=== PATIENT | male | born 1945 | race Caucasian/White ===

== ENCOUNTER 2022-09-02 05:06 | Day surgery (SDC) | payer OTHER, BC ==
[2022-08-27 14:58] VITALS: BMI 29.6
[~2022-09-02 05:06] MED LIST: LIDOCAINE HCL 1% PRESERVATIVE FREE - 30ML VIAL IJ ONE
[2022-09-02] MEDS ORDERED: LIDOCAINE HCL/PF 1% SDV 5ML VIAL ONE (07:38)
[2022-09-02] MEDS ORDERED: DEXAMETHASONE SOD PHOSPHATE 10 MG/1 ML VIAL ONE (07:38)
[2022-09-02] MEDS ORDERED: DEXAMETHASONE SOD PHOSPHATE 4 MG/1 ML VIAL ONE (07:38)
[2022-09-02] MEDS ORDERED: ACETAMINOPHEN 500 MG TABLET (FP) PO PRN (07:47)
[2022-09-02 13:35] VITALS: BP 141/58; PULSE 96; RESP 18; TEMP 97.6
[2022-09-02] MEDS ORDERED: IOHEXOL 180 MG/1 ML ML IJ ONE (14:56)
[2022-09-02] MEDS ORDERED: LIDOCAINE HCL 1% PRESERVATIVE FREE - 30ML VIAL IJ ONE (14:56)
[2022-09-02] MEDS ORDERED: DEXAMETHASONE SOD PHOSPHATE 10 MG/1 ML VIAL IVPUSH ONE (14:57)
== END 2022-09-02 13:30 | disposition home or self-care (01) ==
LOC: JASU-SURG 05:06
PROVIDERS: ATTEND Pain Medicine Pain Medicine
PROC: 3E0R3BZ Introduction of Anesthetic Agent into Spinal Canal, Percutaneous Approach (ICD-10-PCS; 2022-09-02)
PROC: 3E0R33Z Introduction of Anti-inflammatory into Spinal Canal, Percutaneous Approach (ICD-10-PCS; principal; 2022-09-02 15:30)
DX: M54.16 Radiculopathy, lumbar region (principal); M48.061 Spinal stenosis, lumbar region without neurogenic claudication
CPT/HCPCS: 76000-TC-FY; J1100

== ENCOUNTER 2022-10-03 04:08 | Day surgery (SDC) | payer OTHER, BC ==
[2022-10-02 09:31] VITALS: BMI 29.6
[~2022-10-03 04:08] MED LIST changes: +DEXAMETHASONE SOD PHOSPHATE 10 MG/1 ML VIAL IM ONE; +IOHEXOL 180 MG/1 ML ML IJ ONE
[2022-10-03 08:48] VITALS: RESP 20
[2022-10-03] MEDS ORDERED: ACETAMINOPHEN 500 MG TABLET (FP) PO PRN (10:17)
[2022-10-03] MEDS ORDERED: IOHEXOL 180 MG/1 ML ML IJ ONE (11:26)
[2022-10-03] MEDS ORDERED: DEXAMETHASONE SOD PHOSPHATE 10 MG/1 ML VIAL IM ONE (11:26)
[2022-10-03] MEDS ORDERED: LIDOCAINE HCL 1% PRESERVATIVE FREE - 30ML VIAL IJ ONE (11:26)
[2022-10-03 12:55] VITALS: PULSE 71; TEMP 97.8
[2022-10-03 13:01] VITALS: BP 122/62
== END 2022-10-03 12:30 | disposition home or self-care (01) ==
LOC: JASU-SURG 04:08
PROVIDERS: ATTEND Pain Medicine Pain Medicine
PROC: 3E0R3BZ Introduction of Anesthetic Agent into Spinal Canal, Percutaneous Approach (ICD-10-PCS; 2022-10-03)
PROC: 3E0R33Z Introduction of Anti-inflammatory into Spinal Canal, Percutaneous Approach (ICD-10-PCS; principal; 2022-10-03 10:45)
DX: M54.16 Radiculopathy, lumbar region (principal); M48.061 Spinal stenosis, lumbar region without neurogenic claudication
CPT/HCPCS: 76000-TC-FY; J1100

== ENCOUNTER 2022-11-04 04:28 | Day surgery (SDC) | payer OTHER, BC ==
[2022-10-30 11:08] VITALS: BMI 29.9
[~2022-11-04 04:28] MED LIST changes: -DEXAMETHASONE SOD PHOSPHATE 10 MG/1 ML VIAL IM ONE; -IOHEXOL 180 MG/1 ML ML IJ ONE
[2022-11-04] MEDS ORDERED: LIDOCAINE HCL 1%, 10 MG/ML (20ML VIAL) ONE (07:22)
[2022-11-04] MEDS ORDERED: LIDOCAINE HCL 2% (20ML MULTI-DOSE VIAL) ONE (07:22)
[2022-11-04] MEDS ORDERED: LIDOCAINE HCL/PF 1% SDV 5ML VIAL ONE (07:26)
[2022-11-04] MEDS ORDERED: LIDOCAINE HCL 1% PRESERVATIVE FREE - 30ML VIAL IJ ONE (08:56)
[2022-11-04 09:59] VITALS: RESP 18
[2022-11-04] MEDS ORDERED: ACETAMINOPHEN 500 MG TABLET (FP) PO PRN (10:07)
[2022-11-04 10:33] VITALS: BP 167/68; PULSE 84; TEMP 97.7
== END 2022-11-04 10:20 | disposition home or self-care (01) ==
LOC: JASU-SURG 04:28
PROVIDERS: ATTEND Pain Medicine Pain Medicine
PROC: 01HY3MZ Insertion of Neurostimulator Lead into Peripheral Nerve, Percutaneous Approach (ICD-10-PCS; principal; 2022-11-04 08:00)
DX: G89.4 Chronic pain syndrome (principal)
CPT/HCPCS: 64555; C1778

== ENCOUNTER 2022-12-19 04:26 | Day surgery (SDC) | payer OTHER, BC ==
[2022-12-17 16:55] VITALS: BMI 30.4
[2022-12-19] MEDS ORDERED: LIDOCAINE HCL/PF 2% SDV 5ML VIAL ONE (07:25)
[2022-12-19] MEDS ORDERED: LIDOCAINE HCL/PF 1% SDV 5ML VIAL ONE (07:26)
[2022-12-19] MEDS ORDERED: FENTANYL CITRATE/PF 50 MCG/ML VIAL ONE ×2 (12:53→13:16)
[2022-12-19] MEDS ORDERED: MIDAZOLAM HCL 2 MG/2 ML SINGLE DOSE VIAL ONE ×2 (12:53→12:54)
[2022-12-19] MEDS ORDERED: ceFAZolin SODIUM 1 GM VIAL ONE ×2 (13:10→13:15)
[2022-12-19] MEDS ORDERED: DEXAMETHASONE SOD PHOSPHATE 10 MG/1 ML VIAL ONE (13:14)
[2022-12-19] MEDS ORDERED: ceFAZolin SODIUM 1 GM VIAL IVPB ONE (13:15)
[2022-12-19] MEDS ORDERED: ONDANSETRON 4 MG/2 ML VIAL ONE (13:16)
[2022-12-19] MEDS ORDERED: LIDOCAINE HCL/PF 2% SDV 5ML VIAL INF ONE (13:25)
[2022-12-19] MEDS ORDERED: LIDOCAINE 1% P/F 10 MG/ML VIAL INF ONE (13:25)
[2022-12-19] MEDS ORDERED: DEXAMETHASONE SOD PHOSPHATE 10 MG/1 ML VIAL IVPUSH ONE (13:25)
[2022-12-19] MEDS ORDERED: IOHEXOL 180 MG/1 ML ML IJ ONE (13:42)
[2022-12-19 14:52] VITALS: RESP 18; TEMP 98.6
[2022-12-19 17:06] VITALS: BP 152/62; PULSE 73
== END 2022-12-19 15:20 | disposition home or self-care (01) ==
LOC: JASU-SURG 04:26
PROVIDERS: ATTEND Pain Medicine Pain Medicine
PROC: 01NB3ZZ Release Lumbar Nerve, Percutaneous Approach (ICD-10-PCS; principal; 2022-12-19 12:30)
DX: M48.062 Spinal stenosis, lumbar region with neurogenic claudication (principal)
CPT/HCPCS: 0275T; C1889; 36415; 76000-TC-FY; 82010; 82947; 88304-TC; J1100

== ENCOUNTER 2022-12-29 00:54 | Emergency (ER) | payer OTHER, BC ==
[2022-12-29 01:46] VITALS: BMI 31.1
[2022-12-29] MEDS ORDERED: ACETAMINOPHEN 1000 MG/100 ML BAG IVPB ONE (03:22)
[2022-12-29] MEDS ORDERED: MECLIZINE HCL 12.5 MG TABLET PO ONE (03:23)
[2022-12-29] MEDS ORDERED: MECLIZINE HCL 12.5 MG TABLET ONE (03:29)
[2022-12-29] MEDS ORDERED: ACETAMINOPHEN INJECTION 100 ML IVPB ONE (03:29)
[2022-12-29] MEDS ORDERED: NICARDIPINE 25 MG in DEXTROSE 5%-WATER - 240 ML IVPB SCH (03:30)
[2022-12-29 03:38] LABS: BASO % 0.9 % (0-2.0); EOS % 2.8 % (0-4.5); HEMATOCRIT 49.3 % (35.4-49); HEMOGLOBIN 16.8 GM/dL (11.7-16.9); LYMPH % 12.5 % (8-40); MCH 30.1 pg (25.7-33.7); MCHC 34.1 g/dl (32.0-35.9); MEAN CELL VOLUME 88.5 fl (80-96); MEAN PLT VOLUME 8.6 fl (7.5-11.1); MONO % 8.8 % (3.8-10.2); PLATELET COUNT 223 10^3/uL (134-434); RBC 5.57 M/mm3 (4.00-5.60); RDW 14.1 % (11.9-15.9); WHITE BLOOD COUNT 15.7 K/mm3 (4.0-10.0)
[2022-12-29 03:44] LABS: INR 1.1 (0.83-1.09); PROTHROMBIN TIME (PATIENT) 12.7 SEC (9.7-13.0)
[2022-12-29 03:47] LABS: ACTIVATED PTT 35.7 SECONDS (25.2-36.5)
[2022-12-29 04:23] LABS: CHLORIDE 105 mmol/L (98-107); POTASSIUM 4.3 mmol/L (3.5-5.1); SODIUM 137 mmol/L (136-145)
[2022-12-29 04:26] LABS: ALBUMIN 4.1 g/dl (3.4-5.0); ANION GAP 7 mmol/L (4-13); CO2 25 mmol/L (21-32); GLUCOSE,RANDOM 128 mg/dL (74-106)
[2022-12-29 04:28] LABS: BLOOD UREA NITROGEN 11.8 mg/dL (7-18)
[2022-12-29 04:29] LABS: CREATININE 0.7 mg/dL (0.55-1.3); SGOT/AST 20 U/L (15-37); SGPT/ALT 27 U/L (13-61)
[2022-12-29 04:30] LABS: CHOLESTEROL 187 mg/dL (50-200); TOT PROT 7.5 g/dl (6.4-8.2)
[2022-12-29 04:32] LABS: BILIRUBIN,TOTAL 1.4 mg/dL (0.2-1); HDL CHOLESTEROL 67 mg/dL (40-60); LDL CHOLESTEROL (ONLY SJRH) 100 mg/dL (5-100)
[2022-12-29 04:33] LABS: ALK PHOS 110 U/L (45-117)
[2022-12-29 05:21] VITALS: BP 160/85; PULSE 72; RESP 20; TEMP 97.5
== END 2022-12-29 05:29 | disposition short-term general hospital (02) ==
LOC: JER 00:54
PROC: 3E033NZ Introduction of Analgesics, Hypnotics, Sedatives into Peripheral Vein, Percutaneous Approach (ICD-10-PCS; principal; 2022-12-29)
DX: S06.360A Traumatic hemorrhage of cerebrum, unspecified, without loss of consciousness, initial encounter (principal); W01.198A Fall on same level from slipping, tripping and stumbling with subsequent striking against other object, initial encounter; Y92.002 Bathroom of unspecified non-institutional (private) residence as the place of occurrence of the external cause
CPT/HCPCS: 36415; 70450-TC; 71045-TC-FY; 72125-TC; 80053; 80061; 82550; 83036; 84484; 85025; 85610; 85730; 86850; 86900; 86901; 93005; 93010; 99285-25

== ENCOUNTER 2023-10-22 04:44 | Day surgery (SDC) | payer OTHER, BC ==
[2023-10-19 13:24] VITALS: BMI 25.8
[2023-10-22] MEDS ORDERED: LIDOCAINE HCL/PF 1% SDV 5ML VIAL ONE (07:45)
[2023-10-22] MEDS ORDERED: DEXAMETHASONE SOD PHOSPHATE 10 MG/1 ML VIAL ONE (07:45)
[2023-10-22] MEDS: DEXAMETHASONE SOD PHOSPHATE 10 MG/1 ML VIAL IVPUSH ONE ×2 (11:06)
[2023-10-22] MEDS: LIDOCAINE HCL 1% PRESERVATIVE FREE - 30ML VIAL IJ ONE (11:06)
[2023-10-22 11:30] VITALS: BP 142/76; PULSE 80; RESP 20; TEMP 97.3
[2023-10-22] MEDS ORDERED: ACETAMINOPHEN 500 MG TABLET (FP) PO PRN (13:13)
== END 2023-10-22 11:32 | disposition home or self-care (01) ==
LOC: JASU-SURG 04:44
PROVIDERS: ATTEND Pain Medicine Pain Medicine
PROC: 3E0R3BZ Introduction of Anesthetic Agent into Spinal Canal, Percutaneous Approach (ICD-10-PCS; 2023-10-22)
PROC: 3E0R33Z Introduction of Anti-inflammatory into Spinal Canal, Percutaneous Approach (ICD-10-PCS; principal; 2023-10-22 11:00)
DX: M54.16 Radiculopathy, lumbar region (principal); M48.061 Spinal stenosis, lumbar region without neurogenic claudication
CPT/HCPCS: 76000-TC-FY; J1100

== ENCOUNTER 2023-12-31 03:53 | Inpatient (IN) | payer OTHER, BC ==
[2023-12-31] MEDS ORDERED: VANCOMYCIN 1,000 MG VIAL (RESTRICTED TO ID ONLY) ONE (07:02)
[2023-12-31] MEDS ORDERED: GENTAMICIN SO4 80 MG/2 ML VIAL ONE (07:02)
[2023-12-31] MEDS ORDERED: BUPIVACAINE LIPOSOME/PF (EXPAREL) 266 MG/20 ML VIAL ONE ×2 (07:03→09:59)
[2023-12-31] MEDS ORDERED: BUPIVACAINE HCL/PF 0.5% (5MG/ML) 10 ML VIAL ONE (07:03)
[2023-12-31] MEDS ORDERED: PROPOFOL 60 ML ONE (07:28)
[2023-12-31] MEDS ORDERED: MIDAZOLAM HCL 2 MG/2 ML SINGLE DOSE VIAL ONE (07:29)
[2023-12-31] MEDS ORDERED: SUCCINYLCHOLINE CHLORIDE 200 MG/10 ML SYRINGE ONE (07:30)
[2023-12-31] MEDS ORDERED: oxyCODONE HCL 5 MG TABLET PO PRN ×2 (08:00→11:13)
[2023-12-31] MEDS ORDERED: ONDANSETRON 4 MG/2 ML VIAL IVPUSH PRN ×3 (08:00→11:13)
[2023-12-31] MEDS ORDERED: ACETAMINOPHEN 325 MG TABLET (FP) PO PRN ×2 (08:00→11:13)
[2023-12-31] MEDS: HYDROGEN PEROXIDE 473 ML PO ONE ×2 (08:44→10:00)
[2023-12-31] MEDS: ceFAZolin SODIUM 1 GM VIAL IVPB ONE ×2 (08:44→08:52)
[2023-12-31] MEDS ORDERED: ROCURONIUM BROMIDE 50 MG/5 ML SYRINGE ONE ×2 (08:46→09:33)
[2023-12-31] MEDS ORDERED: TRANEXAMIC ACID 1000 MG/10 ML VIAL ONE (08:58)
[2023-12-31] MEDS ORDERED: HYDROmorphone HCl 2 MG/ML VIAL ONE (09:16)
[2023-12-31] MEDS ORDERED: PROPOFOL 20 ML ONE (09:22)
[2023-12-31] MEDS ORDERED: SUGAMMADEX SODIUM 200 MG/2 ML VIAL ONE (09:49)
[2023-12-31] MEDS ORDERED: ACETAMINOPHEN INJECTION 100 ML ONE (09:53)
[2023-12-31] MEDS ORDERED: BUPIVACAINE HCL/PF 0.25% (2.5MG/ML) 10 ML VIAL ONE (09:59)
[2023-12-31] MEDS: GENTAMICIN SO4 80 MG/2 ML VIAL IVPB ONE (10:07)
[2023-12-31] MEDS ORDERED: KETOROLAC TROMETHAMINE 30 MG/1 ML VIAL ONE (10:09)
[2023-12-31] MEDS: THROMBIN (BOVINE) 5,000 UNIT VIAL TP ONE (10:15)
[2023-12-31] MEDS: BUPIVACAINE LIPOSOME/PF (EXPAREL) 266 MG/20 ML VIAL NR ONE ×2 (10:16→10:20)
[2023-12-31] MEDS: VANCOMYCIN 1 GM in D5W (PRE-DOCKED) 1,000 MG/250 ML (RESTRICTED TO ID ONLY IVPB ONE (10:16)
[2023-12-31] MEDS: BUPIVACAINE HCL/PF 0.25% (2.5MG/ML) 10 ML VIAL IJ ONE ×2 (10:16→10:20)
[2023-12-31] MEDS ORDERED: diazePAM CARPU-JECT 10 MG/2 ML DISP.SYRIN ONE (12:46)
[2023-12-31] MEDS: diazePAM CARPU-JECT 10 MG/2 ML DISP.SYRIN IVPUSH PRN (12:49)
[2023-12-31] MEDS: LACTATED RINGERS SOLUTION 1,000 ML IV SCH ×3 (13:01→17:51)
[2023-12-31] MEDS ORDERED: DEXAMETHASONE SOD PHOSPHATE 10 MG/1 ML VIAL ONE (14:01)
[2023-12-31] MEDS: DEXAMETHASONE SOD PHOSPHATE 10 MG/1 ML VIAL IVPUSH ONE (14:28)
[2023-12-31] MEDS: ACETAMINOPHEN 1000 MG/100 ML BAG IVPB PRN (15:51)
[2023-12-31] MEDS: CEFAZOLIN 1 GM/D5W 1 GM/50 ML BAG IVPB SCH (15:51)
[2023-12-31] MEDS: oxyCODONE HCL 5 MG TABLET PO PRN (16:28)
[2023-12-31] MEDS: GABAPENTIN 300 MG CAPSULE PO SCH (21:23)
[2023-12-31] MEDS: DEXAMETHASONE SOD PHOSPHATE 10 MG/1 ML VIAL IVPUSH SCH (21:24)
[2024-01-01] MEDS: EMPAGLIFLOZIN (JARDIANCE) 10 MG TABLET PO SCH (06:14)
[2024-01-01] MEDS: GLIMEPIRIDE 1 MG TABLET PO SCH (06:14)
[2024-01-01 08:47] LABS: POTASSIUM 4.1 mmol/L (3.5-5.1)
[2024-01-01 08:54] LABS: BLOOD UREA NITROGEN 19.7 mg/dL (7-18); CALCIUM 8.7 mg/dL (8.5-10.1)
[2024-01-01 08:55] LABS: CREATININE 0.7 mg/dL (0.55-1.3)
[2024-01-01 10:56] LABS: HEMATOCRIT 37.4 % (35.4-49); HEMOGLOBIN 12.6 GM/dL (11.7-16.9); MCH 30.6 pg (25.7-33.7); MCHC 33.7 g/dl (32.0-35.9); MEAN CELL VOLUME 90.8 fl (80-96); MEAN PLT VOLUME 8.4 fl (7.5-11.1); PLATELET COUNT 185 10^3/uL (134-434); RBC 4.12 M/mm3 (4.00-5.60); RDW 12.7 % (11.9-15.9); WHITE BLOOD COUNT 20.4 K/mm3 (4.0-10.0)
[2024-01-01] MEDS: ROSUVASTATIN CA 5 MG TABLET PO SCH (11:08)
[2024-01-01] MEDS: LOSARTAN POTASSIUM 50 MG TABLET PO SCH (11:08)
[2024-01-01] MEDS ORDERED: diazePAM 5 MG TABLET PO PRN (15:51)
[2024-01-01] MEDS: oxyCODONE HCL 5 MG TABLET PO PRN (17:17)
[2024-01-02 07:53] LABS: HEMOGLOBIN 12.4 GM/dL (11.7-16.9); MCH 30.6 pg (25.7-33.7); MCHC 34.4 g/dl (32.0-35.9); MEAN CELL VOLUME 89.1 fl (80-96); MEAN PLT VOLUME 8.1 fl (7.5-11.1); PLATELET COUNT 185 10^3/uL (134-434); RBC 4.04 M/mm3 (4.00-5.60); RDW 12.8 % (11.9-15.9); WHITE BLOOD COUNT 22.9 K/mm3 (4.0-10.0)
[2024-01-02 08:08] LABS: POTASSIUM 4.1 mmol/L (3.5-5.1)
[2024-01-02 08:14] LABS: ALBUMIN 3.2 g/dl (3.4-5.0); BLOOD UREA NITROGEN 25.2 mg/dL (7-18); CALCIUM 8.9 mg/dL (8.5-10.1)
[2024-01-02 08:18] LABS: CREATININE 0.7 mg/dL (0.55-1.3)
[2024-01-02 08:19] LABS: BILIRUBIN,TOTAL 0.5 mg/dL (0.2-1); TOT PROT 6.3 g/dl (6.4-8.2)
[2024-01-02] MEDS: ALBUTEROL SO4 HFA INHALER IH PRN (11:15)
[2024-01-02] MEDS: CEFAZOLIN 1 GM/D5W 1 GM/50 ML BAG IVPB SCH (17:58)
[2024-01-02] MEDS: PATIENT'S OWN MEDICATION (NON-FORMULARY) (Glucosamine/Chondr Su A Sod [Osteo Bi-Flex Caple PO SCH (23:28)
[2024-01-03] MEDS: LORazepam 2 MG/ML SDV VIAL IVPUSH SCH (07:56)
[2024-01-03 08:18] LABS: HEMATOCRIT 36.3 % (35.4-49); HEMOGLOBIN 12.4 GM/dL (11.7-16.9); MCH 30.5 pg (25.7-33.7); MEAN CELL VOLUME 89.7 fl (80-96); MEAN PLT VOLUME 7.9 fl (7.5-11.1); PLATELET COUNT 194 10^3/uL (134-434); RBC 4.05 M/mm3 (4.00-5.60); RDW 13.2 % (11.9-15.9); WHITE BLOOD COUNT 20.2 K/mm3 (4.0-10.0)
[2024-01-03 08:40] LABS: POTASSIUM 3.9 mmol/L (3.5-5.1)
[2024-01-03 08:44] LABS: ALBUMIN 3.2 g/dl (3.4-5.0); CALCIUM 8.6 mg/dL (8.5-10.1)
[2024-01-03 08:47] LABS: CREATININE 0.7 mg/dL (0.55-1.3)
[2024-01-03 08:49] LABS: BILIRUBIN,TOTAL 0.6 mg/dL (0.2-1); TOT PROT 6.2 g/dl (6.4-8.2)
[2024-01-03 09:27] LABS: ANISOCYTOSIS 0; HELMET CELLS 0; HOWELL-JOLLY BODIES 0; MACROCYTOSIS 0; OVALOCYTE 0; ROULEAU 0; SICKELED CELLS 0; TARGET CELLS 0; TEAR DROP CELLS 0; TOXIC GRANULATION 0
[2024-01-03] MEDS: DOCUSATE SODIUM 100 MG CAPSULE (FP) PO SCH (14:34)
[2024-01-03] MEDS: POLYETHYLENE GLYCOL (HEALTHYLAX) 3350 17 GM PACKET PO SCH (14:34)
[2024-01-03] MEDS ORDERED: SEVOFLURANE 250 ML BTL ONE (17:55)
[2024-01-03] MEDS ORDERED: SUGAMMADEX SODIUM 200 MG/2 ML VIAL ONE (20:02)
[2024-01-03] MEDS ORDERED: ROCURONIUM BROMIDE 50 MG/5 ML SYRINGE ONE (20:02)
[2024-01-03] MEDS ORDERED: PROPOFOL 20 ML ONE (20:02)
[2024-01-03] MEDS ORDERED: ceFAZolin SODIUM 1 GM VIAL ONE (20:03)
[2024-01-03] MEDS ORDERED: LIDOCAINE HCL/PF 2% SDV 5ML VIAL ONE (20:03)
[2024-01-03] MEDS ORDERED: MIDAZOLAM HCL 2 MG/2 ML SINGLE DOSE VIAL ONE (20:03)
[2024-01-03] MEDS ORDERED: ONDANSETRON 4 MG/2 ML VIAL ONE (20:03)
[2024-01-03] MEDS ORDERED: DEXAMETHASONE SOD PHOSPHATE 4 MG/1 ML VIAL ONE (20:03)
[2024-01-03] MEDS: ceFAZolin SODIUM 1 GM VIAL IVPB ONE (20:48)
[2024-01-03] MEDS ORDERED: VANCOMYCIN 1,000 MG VIAL (RESTRICTED TO ID ONLY) ONE (21:00)
[2024-01-03] MEDS ORDERED: TRANEXAMIC ACID 1000 MG/10 ML VIAL ONE (21:11)
[2024-01-03] MEDS: BACITRACIN ZINC 15 GM TUBE TOPICAL OINTMENT TP ONE (22:10)
[2024-01-03] MEDS: LACTATED RINGERS SOLUTION 1,000 ML IV SCH (23:56)
[2024-01-04 08:20] LABS: BASO % 0.1 % (0-2.0); EOS % 0.3 % (0-4.5); HEMATOCRIT 39.5 % (35.4-49); HEMOGLOBIN 13.1 GM/dL (11.7-16.9); LYMPH % 10.7 % (8-40); MCH 30.1 pg (25.7-33.7); MCHC 33.1 g/dl (32.0-35.9); MEAN CELL VOLUME 90.9 fl (80-96); MEAN PLT VOLUME 7.9 fl (7.5-11.1); MONO % 6.6 % (3.8-10.2); NEUT % 82.3 % (42.8-82.8); PLATELET COUNT 217 10^3/uL (134-434); RBC 4.35 M/mm3 (4.00-5.60); RDW 12.9 % (11.9-15.9); WHITE BLOOD COUNT 17.8 K/mm3 (4.0-10.0)
[2024-01-04 08:46] LABS: POTASSIUM 4.5 mmol/L (3.5-5.1)
[2024-01-04 08:51] LABS: CALCIUM 8.9 mg/dL (8.5-10.1)
[2024-01-04 08:52] LABS: ALBUMIN 3.2 g/dl (3.4-5.0); BLOOD UREA NITROGEN 25.1 mg/dL (7-18)
[2024-01-04 08:55] LABS: CREATININE 0.7 mg/dL (0.55-1.3)
[2024-01-04 08:57] LABS: BILIRUBIN,TOTAL 1.1 mg/dL (0.2-1); TOT PROT 6.5 g/dl (6.4-8.2)
[2024-01-04 09:05] LABS: INR 1.05 (0.83-1.09); PROTHROMBIN TIME (PATIENT) 11.8 SEC (9.7-13.0)
[2024-01-05 08:07] LABS: POTASSIUM 4.4 mmol/L (3.5-5.1)
[2024-01-05 08:09] LABS: CALCIUM 8.9 mg/dL (8.5-10.1)
[2024-01-05 08:10] LABS: ALBUMIN 3.1 g/dl (3.4-5.0); BLOOD UREA NITROGEN 24.6 mg/dL (7-18)
[2024-01-05 08:13] LABS: CREATININE 0.7 mg/dL (0.55-1.3)
[2024-01-05 08:14] LABS: TOT PROT 6.4 g/dl (6.4-8.2)
[2024-01-05 09:02] LABS: BASO % 0.1 % (0-2.0); EOS % 3.6 % (0-4.5); HEMATOCRIT 41.6 % (35.4-49); HEMOGLOBIN 13.5 GM/dL (11.7-16.9); MCH 29.6 pg (25.7-33.7); MCHC 32.4 g/dl (32.0-35.9); MEAN CELL VOLUME 91.3 fl (80-96); MEAN PLT VOLUME 8.1 fl (7.5-11.1); MONO % 8.4 % (3.8-10.2); NEUT % 71.9 % (42.8-82.8); PLATELET COUNT 249 10^3/uL (134-434); RBC 4.55 M/mm3 (4.00-5.60); RDW 12.8 % (11.9-15.9); WHITE BLOOD COUNT 16.8 K/mm3 (4.0-10.0)
[2024-01-05] MEDS: BISACODYL 10 MG SUPP.RECT PR ONE (10:49)
[2024-01-05] MEDS: SODIUM PHOSPHATE/NA BIPHOS 133 ML ENEMA RC ONE (20:59)
[2024-01-06] MEDS: ENOXAPARIN NA (PORCINE) 30 MG/0.3 ML DISP.SYRIN SQ SCH (22:01)
[2024-01-08 09:04] LABS: BASO % 0.7 % (0-2.0); EOS % 2.9 % (0-4.5); HEMATOCRIT 41.8 % (35.4-49); HEMOGLOBIN 14.2 GM/dL (11.7-16.9); MCH 30.6 pg (25.7-33.7); MCHC 33.9 g/dl (32.0-35.9); MEAN CELL VOLUME 90.2 fl (80-96); MEAN PLT VOLUME 7.8 fl (7.5-11.1); MONO % 7.1 % (3.8-10.2); NEUT % 75.3 % (42.8-82.8); PLATELET COUNT 277 10^3/uL (134-434); RBC 4.64 M/mm3 (4.00-5.60); RDW 12.8 % (11.9-15.9); WHITE BLOOD COUNT 19.5 K/mm3 (4.0-10.0)
[2024-01-08 09:09] LABS: POTASSIUM 4.1 mmol/L (3.5-5.1)
[2024-01-08 09:13] LABS: CALCIUM 8.7 mg/dL (8.5-10.1)
[2024-01-08 09:15] LABS: ALBUMIN 2.9 g/dl (3.4-5.0); BLOOD UREA NITROGEN 16.1 mg/dL (7-18)
[2024-01-08 09:17] LABS: CREATININE 0.6 mg/dL (0.55-1.3)
[2024-01-08 09:20] LABS: BILIRUBIN,TOTAL 0.9 mg/dL (0.2-1); TOT PROT 6.4 g/dl (6.4-8.2)
[2024-01-08 17:07] LABS: VON WILLEBRAND ANTIGEN 343 % (50-200)
[2024-01-09] MEDS: TAMSULOSIN HCL 0.4 MG CAP PO SCH (09:11)
[2024-01-09] MEDS: ENOXAPARIN NA (PORCINE) 30 MG/0.3 ML DISP.SYRIN SQ SCH (21:49)
[2024-01-10] MEDS ORDERED: DOCUSATE SODIUM 100 MG CAPSULE (FP) PO PRN (11:04)
[2024-01-10] MEDS ORDERED: POLYETHYLENE GLYCOL (HEALTHYLAX) 3350 17 GM PACKET PO PRN (11:05)
[2024-01-10] MEDS: FINASTERIDE 5 MG TABLET (FP) PO SCH (12:23)
[2024-01-10] MEDS: TAMSULOSIN HCL 0.4 MG CAP PO SCH (17:58)
[2024-01-10] MEDS: LOPERAMIDE HCL 2 MG CAPSULE PO SCH (21:18)
[2024-01-11 07:35] LABS: BASO % 0.7 % (0-2.0); EOS % 1.7 % (0-4.5); HEMATOCRIT 38.4 % (35.4-49); HEMOGLOBIN 12.8 GM/dL (11.7-16.9); LYMPH % 13.9 % (8-40); MCH 30.1 pg (25.7-33.7); MCHC 33.2 g/dl (32.0-35.9); MEAN CELL VOLUME 90.7 fl (80-96); MEAN PLT VOLUME 8.1 fl (7.5-11.1); MONO % 6.5 % (3.8-10.2); NEUT % 77.2 % (42.8-82.8); PLATELET COUNT 241 10^3/uL (134-434); RBC 4.24 M/mm3 (4.00-5.60); RDW 12.9 % (11.9-15.9); WHITE BLOOD COUNT 19.3 K/mm3 (4.0-10.0)
[2024-01-11 07:53] LABS: POTASSIUM 4.2 mmol/L (3.5-5.1)
[2024-01-11 07:57] LABS: CALCIUM 8.4 mg/dL (8.5-10.1)
[2024-01-11 07:58] LABS: ALBUMIN 2.8 g/dl (3.4-5.0); BLOOD UREA NITROGEN 15.7 mg/dL (7-18)
[2024-01-11 08:01] LABS: CREATININE 0.6 mg/dL (0.55-1.3)
[2024-01-11 08:03] LABS: BILIRUBIN,TOTAL 0.7 mg/dL (0.2-1)
[2024-01-11] MEDS: diazePAM 5 MG TABLET PO SCH (14:06)
[2024-01-11 21:06] LABS: INR 1.01 (0.83-1.09); PROTHROMBIN TIME (PATIENT) 11.6 SEC (9.7-13.0)
[2024-01-12] MEDS ORDERED: GENTAMICIN SO4 80 MG/2 ML VIAL ONE (07:27)
[2024-01-12] MEDS ORDERED: VANCOMYCIN 1,000 MG VIAL (RESTRICTED TO ID ONLY) ONE (07:27)
[2024-01-12] MEDS ORDERED: SUCCINYLCHOLINE CHLORIDE 200 MG/10 ML SYRINGE ONE (07:41)
[2024-01-12] MEDS ORDERED: PROPOFOL 60 ML ONE (07:41)
[2024-01-12] MEDS ORDERED: ROCURONIUM BROMIDE 50 MG/5 ML SYRINGE ONE (07:41)
[2024-01-12] MEDS ORDERED: DEXMEDETOMIDINE HCL 200 MCG/2 ML IVPB ONE (08:10)
[2024-01-12] MEDS ORDERED: PROPOFOL 20 ML ONE ×3 (08:13→10:24)
[2024-01-12] MEDS ORDERED: KETAMINE HCL 200 MG/20 ML VIAL ONE (08:15)
[2024-01-12] MEDS ORDERED: HYDROmorphone HCl 2 MG/ML VIAL ONE ×2 (09:00→10:28)
[2024-01-12] MEDS: ceFAZolin 2 GRAM PREMIX BAG IVPB ONE (09:00)
[2024-01-12] MEDS: ceFAZolin SODIUM 1 GM VIAL IVPB ONE ×2 (09:49→09:50)
[2024-01-12] MEDS: HYDROGEN PEROXIDE 473 ML PO ONE (09:50)
[2024-01-12] MEDS: VANCOMYCIN 1 GM in NS (PRE-DOCKED) 1,000 MG/250 ML (RESTRICTED TO ID ONLY) IVPB ONE ×2 (09:52→10:55)
[2024-01-12] MEDS ORDERED: MIDAZOLAM HCL 2 MG/2 ML SINGLE DOSE VIAL ONE (10:27)
[2024-01-12] MEDS ORDERED: GLYCOPYRROLATE 0.2 MG/1 ML VIAL ONE (10:27)
[2024-01-12] MEDS ORDERED: MAGNESIUM SULF 50% (8.12 MEQ/2 ML-1 GM VIAL) ONE (10:28)
[2024-01-12] MEDS ORDERED: ACETAMINOPHEN INJECTION 100 ML ONE (10:40)
[2024-01-12] MEDS ORDERED: ONDANSETRON 4 MG/2 ML VIAL IVPUSH PRN ×5 (10:44→12:34)
[2024-01-12] MEDS: THROMBIN (BOVINE) 5,000 UNIT VIAL TP ONE (10:44)
[2024-01-12] MEDS ORDERED: LACTATED RINGERS SOLUTION 1,000 ML IV SCH ×3 (10:45→12:34)
[2024-01-12] MEDS ORDERED: BACITRACIN ZINC 15 GM TUBE TOPICAL OINTMENT ONE (11:03)
[2024-01-12] MEDS ORDERED: ALBUTEROL SO4 HFA INHALER IH ONE (11:10)
[2024-01-12] MEDS ORDERED: ALBUTEROL SO4 HFA INHALER IH PRN (12:34)
[2024-01-12] MEDS: diazePAM 5 MG TABLET PO ONE (15:07)
[2024-01-12] MEDS: oxyCODONE HCL 5 MG TABLET PO PRN (17:29)
[2024-01-12] MEDS: LOPERAMIDE HCL 2 MG CAPSULE PO SCH (17:37)
[2024-01-12] MEDS: TAMSULOSIN HCL 0.4 MG CAP PO SCH (17:41)
[2024-01-12] MEDS: GABAPENTIN 300 MG CAPSULE PO SCH (21:14)
[2024-01-12] MEDS: ROSUVASTATIN CA 5 MG TABLET PO SCH (21:14)
[2024-01-13] MEDS: LACTATED RINGERS SOLUTION 1,000 ML IV SCH (04:15)
[2024-01-13] MEDS: EMPAGLIFLOZIN (JARDIANCE) 10 MG TABLET PO SCH (06:41)
[2024-01-13] MEDS: GLIMEPIRIDE 1 MG TABLET PO SCH (06:41)
[2024-01-13 09:13] LABS: INR 1.05 (0.83-1.09); PROTHROMBIN TIME (PATIENT) 12.1 SEC (9.7-13.0)
[2024-01-13 09:29] LABS: POTASSIUM 4.3 mmol/L (3.5-5.1)
[2024-01-13 09:33] LABS: HEMATOCRIT 35.1 % (35.4-49); HEMOGLOBIN 11.8 GM/dL (11.7-16.9); MCHC 33.6 g/dl (32.0-35.9); MEAN CELL VOLUME 89.3 fl (80-96); MEAN PLT VOLUME 7.9 fl (7.5-11.1); PLATELET COUNT 270 10^3/uL (134-434); RBC 3.93 M/mm3 (4.00-5.60); RDW 12.9 % (11.9-15.9); WHITE BLOOD COUNT 29.3 K/mm3 (4.0-10.0)
[2024-01-13 09:37] LABS: CALCIUM 8.6 mg/dL (8.5-10.1)
[2024-01-13 09:38] LABS: ALBUMIN 2.8 g/dl (3.4-5.0); BLOOD UREA NITROGEN 17.6 mg/dL (7-18); MAGNESIUM 2.3 mg/dL (1.8-2.4)
[2024-01-13 09:41] LABS: CREATININE 0.6 mg/dL (0.55-1.3)
[2024-01-13 09:43] LABS: BILIRUBIN,TOTAL 0.6 mg/dL (0.2-1); TOT PROT 5.9 g/dl (6.4-8.2)
[2024-01-13] MEDS: LOSARTAN POTASSIUM 50 MG TABLET PO SCH (10:21)
[2024-01-13] MEDS: FINASTERIDE 5 MG TABLET (FP) PO SCH (10:22)
[2024-01-13] MEDS: ACETAMINOPHEN 325 MG TABLET (FP) PO PRN (22:37)
[2024-01-14] MEDS: CEFAZOLIN 2 GM/D5W 2 GM/50 ML ML IVPB SCH (13:59)
[2024-01-14] MEDS: CEFAZOLIN 1 GM/D5W 1 GM/50 ML BAG IVPB SCH (14:14)
[2024-01-14 20:12] LABS: HIV INTERPRETATION NEGATIVE (NEGATIVE)
[2024-01-15 09:55] LABS: HEMOGLOBIN 11.3 GM/dL (11.7-16.9); MCH 30.1 pg (25.7-33.7); MCHC 33.4 g/dl (32.0-35.9); MEAN CELL VOLUME 90.1 fl (80-96); MEAN PLT VOLUME 8.2 fl (7.5-11.1); PLATELET COUNT 232 10^3/uL (134-434); RBC 3.77 M/mm3 (4.00-5.60); RDW 12.7 % (11.9-15.9); WHITE BLOOD COUNT 25.9 K/mm3 (4.0-10.0)
[2024-01-15] MEDS ORDERED: CEFAZOLIN 1 GM/D5W 1 GM/50 ML BAG IVPB SCH ×2 (10:00)
[2024-01-15 12:37] LABS: CREATININE 0.7 mg/dL (0.55-1.3); GLUCOSE,RANDOM 97 mg/dL (74-106)
[2024-01-15 12:38] LABS: CALCIUM 8.2 mg/dL (8.5-10.1); CHLORIDE 100 mmol/L (98-107); CO2 24 mmol/L (21-32); POTASSIUM 4.1 mmol/L (3.5-5.1); SODIUM 134 mmol/L (136-145)
[2024-01-15 12:40] LABS: ALBUMIN 2.3 g/dl (3.4-5.0); MAGNESIUM 2.1 mg/dL (1.8-2.4); TOT PROT 5.8 g/dl (6.4-8.2)
[2024-01-15 12:41] LABS: ALK PHOS 92 U/L (45-117); BILIRUBIN,TOTAL 0.9 mg/dL (0.2-1); SGOT/AST 44 U/L (15-37); SGPT/ALT 23 U/L (13-61)
[2024-01-15 15:44] VITALS: BMI 28.1
[2024-01-15] MEDS: ENOXAPARIN NA (PORCINE) 80 MG/0.8 ML DISP.SYRIN SQ SCH (17:33)
[2024-01-17 09:47] LABS: INR 1.15 (0.83-1.09); PROTHROMBIN TIME (PATIENT) 13.2 SEC (9.7-13.0)
[2024-01-17 09:53] LABS: HEMATOCRIT 36.4 % (35.4-49); HEMOGLOBIN 12.6 GM/dL (11.7-16.9); MCH 30.5 pg (25.7-33.7); MCHC 34.6 g/dl (32.0-35.9); MEAN CELL VOLUME 88.2 fl (80-96); MEAN PLT VOLUME 8.3 fl (7.5-11.1); PLATELET COUNT 271 10^3/uL (134-434); RBC 4.12 M/mm3 (4.00-5.60); RDW 13.2 % (11.9-15.9); WHITE BLOOD COUNT 13.1 K/mm3 (4.0-10.0)
[2024-01-17 10:04] LABS: POTASSIUM 4.1 mmol/L (3.5-5.1)
[2024-01-17 10:09] LABS: ALBUMIN 2.4 g/dl (3.4-5.0); BLOOD UREA NITROGEN 19.6 mg/dL (7-18); CALCIUM 8.5 mg/dL (8.5-10.1)
[2024-01-17 10:11] LABS: IRON SERUM 28 ug/dL (50-175)
[2024-01-17 10:12] LABS: CREATININE 0.6 mg/dL (0.55-1.3); TOTAL IRON BINDING CAPACITY 171 ug/dL (250-450)
[2024-01-17 10:14] LABS: BILIRUBIN,TOTAL 0.7 mg/dL (0.2-1)
[2024-01-17] MEDS: IRON SUCROSE INJECTION 200 MG in SODIUM CHLORIDE 100 ML IVPB ONE (14:36)
[2024-01-18] MEDS: APIXABAN 5 MG TABLET PO SCH (09:11)
[2024-01-18] MEDS: GABAPENTIN 300 MG CAPSULE PO SCH (13:30)
[2024-01-19 10:21] VITALS: BP 121/69; PULSE 109; RESP 19; TEMP 98.6
== END 2024-01-19 11:55 | DRG 516 ==
LOC: JASUSAT 03:53 → EDSTATUS 08:00 → J8W 14:40 → JASUSAT 14:41
PROVIDERS: ADMIT Family Medicine; ATTEND Family Medicine
PROC: 4A11X4G Monitoring of Peripheral Nervous Electrical Activity, Intraoperative, External Approach (ICD-10-PCS; 2023-12-31)
PROC: 01NB0ZZ Release Lumbar Nerve, Open Approach (ICD-10-PCS; principal; 2023-12-31 08:00)
PROC: 00CU0ZZ Extirpation of Matter from Spinal Canal, Open Approach (ICD-10-PCS; 2024-01-03)
PROC: 01NB0ZZ Release Lumbar Nerve, Open Approach (ICD-10-PCS; 2024-01-03)
PROC: 00CU0ZZ Extirpation of Matter from Spinal Canal, Open Approach (ICD-10-PCS; 2024-01-12)
DX: M48.062 Spinal stenosis, lumbar region with neurogenic claudication (principal); D47.1 Chronic myeloproliferative disease; D68.00 Von Willebrand disease, unspecified; G83.4 Cauda equina syndrome; G97.62 Postprocedural hematoma of a nervous system organ or structure following other procedure; J44.9 Chronic obstructive pulmonary disease, unspecified; F41.9 Anxiety disorder, unspecified; I10 Essential (primary) hypertension; E78.5 Hyperlipidemia, unspecified; K21.9 Gastro-esophageal reflux disease without esophagitis; Y83.8 Other surgical procedures as the cause of abnormal reaction of the patient, or of later complication, without mention of misadventure at the time of the procedure; M54.16 Radiculopathy, lumbar region; R32 Unspecified urinary incontinence; R15.9 Full incontinence of feces; R10.9 Unspecified abdominal pain
CPT/HCPCS: 36415; 71045-TC-FY; 72131-TC; 72146-TC; 72148-TC; 74018-TC-FY; 76000-TC-FY; 80048; 80053; 82180; 82962; 83540; 83550; 83735; 83880; 84460; 85025; 85027; 85240; 85246; 85247; 85384; 85610; 85670; 85730; 86803; 86850; 86900; 86901; 87040; 87086; 87340; 87389; 94760; 97116-GP; 97161-GP; J0131; J1100; J1756

== ENCOUNTER 2024-09-05 12:51 | Inpatient (IN) | payer OTHER, BC ==
[2024-09-05 13:25] VITALS: BMI 29.2
[2024-09-05 15:12] LABS: EPITHELIAL CELLS 0-5 /hpf
[2024-09-05] MEDS: MEROPENEM 1 GM in DEXTROSE 5%-WATER 100 ML IVPB ONE (15:12)
[2024-09-05 15:20] LABS: ABSOLUTE IMMATURE GRANULOCYTES 0.11 x10^3/uL (0.0-0.031); BASOPHILS # 0.11 x10^3/uL (0.01-0.08); EOSINOPHIL % 6.7 % (0.8-7.0); EOSINOPHILS # 1.02 x10^3/uL (0.04-0.54); MCHC 33.0 g/dl (32.3-36.5); MEAN CELL VOLUME 90.7 fl (79.0-92.2); MEAN PLT VOLUME 9.6 fl (9.4-12.4); MONOCYTE # 1.43 x10^3/uL (0.30-0.82); MONOCYTE % 9.4 % (5.3-12.2); RDW 13.0 % (12.2-16.6)
[2024-09-05 15:46] LABS: ALK PHOS 112 U/L (45-117); CO2 25 mmol/L (21-32); CREATININE 0.6 mg/dl (0.6-1.3); GLUCOSE,RANDOM 126 mg/dl (74-106); SGOT/AST 15 U/L (15-37); SGPT/ALT 13 U/L (7-52); TOT PROT 6.7 g/dl (6.4-8.2)
[2024-09-05 17:56] LABS: HCV DIAGNOSTIC IN-HOUSE W/RFLX NON-REACTIVE (NONREACTIVE)
[2024-09-05 17:57] LABS: HIV INTERPRETATION NEGATIVE (NEGATIVE)
[2024-09-05] MEDS: ACETAMINOPHEN 1000 MG/100 ML BAG IVPB PRN (19:53)
[2024-09-05] MEDS: traZODone HCL 50 MG TABLET (FP) PO SCH (23:36)
[2024-09-06] MEDS: INSULIN ASPART SLIDING SCALE (NOVOLOG) 1 VIAL SQ SCH (07:26)
[2024-09-06 07:49] LABS: ABSOLUTE IMMATURE GRANULOCYTES 0.08 x10^3/uL (0.0-0.031); BASOPHILS # 0.09 x10^3/uL (0.01-0.08); EOSINOPHIL % 7.1 % (0.8-7.0); EOSINOPHILS # 1.12 x10^3/uL (0.04-0.54); MCHC 33.4 g/dl (32.3-36.5); MEAN CELL VOLUME 90.4 fl (79.0-92.2); MEAN PLT VOLUME 9.4 fl (9.4-12.4); MONOCYTE # 1.38 x10^3/uL (0.30-0.82); MONOCYTE % 8.7 % (5.3-12.2); RDW 13.0 % (12.2-16.6)
[2024-09-06] MEDS: MEROPENEM 1 GM in DEXTROSE 5%-WATER 100 ML IVPB SCH ×2 (08:31→17:41)
[2024-09-06 09:05] LABS: CO2 27.0 mmol/L (21-32); CREATININE 0.7 mg/dl (0.6-1.3); GLUCOSE,RANDOM 155.0 mg/dl (74-106)
[2024-09-06] MEDS: GABAPENTIN 300 MG CAPSULE PO SCH (09:52)
[2024-09-06] MEDS: LOSARTAN POTASSIUM 50 MG TABLET PO SCH (09:52)
[2024-09-06] MEDS: ENOXAPARIN NA (PORCINE) 40 MG/0.4 ML DISP.SYRIN SQ SCH (09:53)
[2024-09-06] MEDS: ROSUVASTATIN CA 5 MG TABLET PO SCH (21:35)
[2024-09-06] MEDS: FLUCONAZOLE 150 MG TABLET PO ONE (22:59)
[2024-09-06] MEDS: CLOTRIMAZOLE 1% CREAM TP SCH (22:59)
[2024-09-07 02:03] VITALS: RESP 18
[2024-09-07 08:06] LABS: ABSOLUTE IMMATURE GRANULOCYTES 0.08 x10^3/uL (0.0-0.031); BASOPHILS # 0.10 x10^3/uL (0.01-0.08); EOSINOPHIL % 5.7 % (0.8-7.0); EOSINOPHILS # 0.90 x10^3/uL (0.04-0.54); MCHC 32.9 g/dl (32.3-36.5); MEAN CELL VOLUME 90.2 fl (79.0-92.2); MEAN PLT VOLUME 9.7 fl (9.4-12.4); MONOCYTE # 1.22 x10^3/uL (0.30-0.82); MONOCYTE % 7.7 % (5.3-12.2); RDW 13.0 % (12.2-16.6)
[2024-09-07 08:50] LABS: ALK PHOS 106.0 U/L (45-117); CO2 27.0 mmol/L (21-32); CREATININE 0.6 mg/dl (0.6-1.3); GLUCOSE,RANDOM 147.0 mg/dl (74-106); SGOT/AST 14.0 U/L (15-37); SGPT/ALT 11.0 U/L (7-52); TOT PROT 6.4 g/dl (6.4-8.2)
[2024-09-07 14:06] VITALS: BP 150/79; PULSE 84; TEMP 98.1
[2024-09-07] MEDS: ERTAPENEM SODIUM 1 GM in SODIUM CHLORIDE 50 ML IVPB SCH (16:08)
== END 2024-09-07 17:30 | disposition home or self-care (01) | DRG 690 ==
LOC: FER 12:51 → FM/S 15:12 → OBSVTOIN 21:31
PROVIDERS: ADMIT Family Medicine; ATTEND Family Medicine
DX: N39.0 Urinary tract infection, site not specified (principal); I10 Essential (primary) hypertension; E78.5 Hyperlipidemia, unspecified; E11.9 Type 2 diabetes mellitus without complications; J44.9 Chronic obstructive pulmonary disease, unspecified; Z85.46 Personal history of malignant neoplasm of prostate; N48.1 Balanitis; B37.2 Candidiasis of skin and nail
CPT/HCPCS: 36415; 76775-TC; 80048; 80053; 81003; 81015; 82962; 83735; 85025; 86803; 87086; 87389; 87637-QW; 93971-TC; 99285-25; G0378